=== PATIENT | female | born 1980 | race American Indian/Alaskan Native ===

== ENCOUNTER 2024-02-26 17:31 | Emergency (ER) | payer OTHER, SELFPAY ==
[2024-02-26 17:37] VITALS: BP 123/80; PULSE 110; RESP 20; TEMP 36.8; O2SAT 95; BMI 24.2
--- NOTE | 2024-02-26 17:41 | DI.RAD.S_ITS ---
PROCEDURE: XR HIP W PEL IF DONE RT 2V INDICATIONS: fall/pain TECHNIQUE: AP pelvis with lateral view(s) of the right hip(s). COMPARISON: None. FINDINGS: Bones: No fractures or dislocations. Pelvic ring appears intact. No suspicious bony lesions. Soft tissues: The visualized bowel gas pattern is normal. No suspicious soft tissue calcifications. IMPRESSION: No acute osseous abnormality. If pain persists with conservative management, consider repeat x-ray in 10-14 days or cross-sectional imaging. Dictated by: Valeriano Thompson M.D. on 02/26/2024 at 18:25 Approved by: Valeriano Thompson M.D. on 02/26/2024 at 18:25
--- NOTE | 2024-02-26 19:40 | ED_ITS ---
HPI - Fall General Chief Complaint: Fall Stated Complaint: fall, landed on hip Time Seen by Provider: 02/26/24 19:33 Source: patient Mode of arrival: Ambulatory History of Present Illness HPI Narrative: 43-year-old female who is here for evaluation of right hip pain. States she was coming down the stairs out of her trailer when she slipped. Landed on her right hip. Has been ambulatory it was had discomfort in the right hip since then. No other injuries from the event. Related Data Allergies Allergy/AdvReac Type Severity Reaction Status Date / Time No Known Drug Allergies Allergy Verified 02/26/24 17:37 Review of Systems Constitutional Constitutional: Reports system reviewed and no additional complaints, except as documented Musculoskeletal Musculoskeletal: Reports system reviewed and no additional complaints, except as documented Integumentary/Breasts Skin/Breast: Reports system reviewed and no additional complaints, except as documented Patient History Social History Smoking Status: Current every day smoker Smoking Status: Current every day smoker tobacco type: cigarettes alcohol intake frequency: a few times a month Substance Use Type: marijuana Exam Initial Vital Signs Initial Vital Signs: Vital Signs Temperature 98.3 F 02/26/24 17:37 Pulse Rate 110 H 02/26/24 17:37 Respiratory Rate 20 02/26/24 17:37 Blood Pressure 123/80 02/26/24 17:37 Pulse Oximetry 95 02/26/24 17:37 Oxygen Delivery Method Room Air 02/26/24 17:37 HENMT Head: normal to inspection and normocephalic Resp Effort & Inspection: normal respiratory effort Cardio Rate: regular rate GI Inspection: normal to inspection Extrem Other: Discomfort to palpation right-sided SI joint and posterior hip. No discomfort over the lateral portion of the hip. Course Orders Ordered: ED Orders 02/26/24 17:41 XR hip w pel if done RT 2V Stat Discontinued Medications Cyclobenzaprine HCl (Cyclobenzaprine 10 Mg Prepack) 1 bottle MISC DIRECTED ONE Stop: 02/26/24 19:51 Last Admin: 02/26/24 19:53 Dose: 1 bottle Documented By: PIERRE Tramadol HCl (Tramadol 50 Mg Tablet) 50 mg PO NOW ONE Stop: 02/26/24 19:42 Last Admin: 02/26/24 19:48 Dose: 50 mg Documented By: PIERRE Tramadol HCl (Tramadol 50 Mg Prepack) 1 bottle MISC DIRECTED ONE Stop: 02/26/24 19:42 Last Admin: 02/26/24 19:48 Dose: 1 bottle Documented By: PIERRE Vital Signs Vital signs: Vital Signs - 8 hr 02/26/24 17:37 Temperature 98.3 F Pulse Rate 110 H Respiratory Rate 20 Blood Pressure 123/80 Pulse Oximetry 95 Oxygen Delivery Method Room Air MDM - Fall Imaging Data Extremity x-ray #1: Radiologist's Impression: PROCEDURE: XR HIP W PEL IF DONE RT 2V INDICATIONS: fall/pain TECHNIQUE: AP pelvis with lateral view(s) of the right hip(s). COMPARISON: None. FINDINGS: Bones: No fractures or dislocations. Pelvic ring appears intact. No suspicious bony lesions. Soft tissues: The visualized bowel gas pattern is normal. No suspicious soft tissue calcifications. IMPRESSION: No acute osseous abnormality. If pain persists with conservative management, consider repeat x-ray in 10-14 days or cross-sectional imaging. [facility] Narrative Medical decision making narrative: No fractures or dislocations noted on the x-ray. Patient was neurovascularly intact. Her right ankle and right knee unremarkable. She has been ambulatory. Patient can ambulate as tolerated. Symptom control for now. Patient was given return precautions. Discharge Plan Departure Patient Disposition: Home Clinical Impression: Contusion of hip, right Instructions: How To Perform RICE (Rest, Ice, Compress, Elevate) Activity Restrictions/Additional Instructions: No fractures were noted on the x-rays. You can walk on your right leg as tolerated. You can take Tylenol and/or ibuprofen for discomfort. Return to the emergency department for new symptoms. Stand Alone Forms: Patient Portal/API
[2024-02-26] MEDS: TRAMADOL 50 MG TABLET PO (19:48)
[2024-02-26] MEDS: TRAMADOL 50 MG PREPACK 1 BOTTLE MISC (19:48)
[2024-02-26] MEDS: CYCLOBENZAPRINE 10 MG PREPACK 1 BOTTLE MISC (19:53)
== END 2024-02-26 19:59 | disposition home or self-care (01) ==
PROVIDERS: Emergency Provider Emergency Medicine
DX: S70.01XA Contusion of right hip, initial encounter (principal); W10.9XXA Fall (on) (from) unspecified stairs and steps, initial encounter
CPT/HCPCS: 73502; 99283